=== PATIENT | female | born 1940 | race Caucasian/White ===

== ENCOUNTER 2020-09-14 11:43 | Observation (INO) ==
[2020-09-14] MEDS ORDERED: Gadolinium Contrast Agent (WT Based) IV PRN (12:58)
[2020-09-14] MEDS ORDERED: *HR* HYDROmorphone (PF) 1 MG/ML SYRINGE IVP STA (12:59)
[2020-09-14] MEDS ORDERED: *HR* HYDROmorphone 2 MG/ML SYRINGE IVP STA (12:59)
[2020-09-14] MEDS ORDERED: *HR* LORazepam 2 MG/ML VIAL IVP ONE (13:01)
[2020-09-14 13:26] LABS: Basophils % 0.4 %; Eosinophils # 0.1 K/mcL (0.0-0.6); Eosinophils % 1.5 %; Hematocrit 40.3 % (35.3-44.9); Immature Granulocytes % 0.2 % (0-4); Lymphocytes # 3.3 K/mcL (0.6-4.6); Lymphocytes % 34.6 %; Mean Corpuscular HGB Conc 31.3 g/dL (31.6-35.5); Mean Corpuscular Hemoglobin 31.4 pg (28.0-33.3); Mean Corpuscular Volume 100.5 fL (83.0-100.0); Mean Platelet Volume 10.7 fL (9.4-12.4); Monocytes # 0.9 K/mcL (0.0-1.3); Monocytes % 8.9 %; Neutrophils # 5.2 K/mcL (1.6-8.9); Platelet Count 177 K/mcL (140-400); Red Blood Count 4.01 M/mcL (3.82-4.97); Red Cell Distribution Width 13.2 % (11.5-14.5); Segmented Neutrophils % 54.4 %; White Blood Count 9.6 K/mcL (4.3-11.1)
[2020-09-14 13:28] LABS: Hemoglobin 12.6 g/dL (11.5-15.4)
[2020-09-14 13:48] LABS: Potassium 3.7 mEq/L (3.5-5.1)
[2020-09-14] MEDS ORDERED: Naloxone 0.4 MG/ML INJ IVP PRN (18:48)
[2020-09-14] MEDS ORDERED: Melatonin 3 MG TABLET PO PRN (18:48)
[2020-09-14] MEDS ORDERED: Acetaminophen 325 MG TABLET PO PRN (18:48)
[2020-09-14] MEDS ORDERED: Ondansetron 4 MG/2 ML VIAL IVP PRN (18:48)
[2020-09-14] MEDS ORDERED: Gabapentin 300 MG CAPSULE PO ONE (20:12)
[2020-09-14] MEDS ORDERED: Morphine Sulfate 2 MG/ML SYRINGE IVP PRN (20:15)
[2020-09-14] MEDS ORDERED: *HR* Labetalol 20 MG/4 ML SYRINGE IVP PRN (20:21)
[2020-09-14] MEDS: *HR* OxyCODONE Immed Rel 5 MG TABLET PO PRN (20:56)
[2020-09-15 07:07] LABS: Basophils # 0.1 K/mcL (0.0-0.2); Basophils % 0.6 %; Eosinophils # 0.3 K/mcL (0.0-0.6); Eosinophils % 3.5 %; Hematocrit 36.3 % (35.3-44.9); Hemoglobin 11.2 g/dL (11.5-15.4); Immature Granulocytes % 0.2 % (0-4); Lymphocytes # 3.3 K/mcL (0.6-4.6); Mean Corpuscular HGB Conc 30.9 g/dL (31.6-35.5); Mean Corpuscular Hemoglobin 31.2 pg (28.0-33.3); Mean Corpuscular Volume 101.1 fL (83.0-100.0); Mean Platelet Volume 10.6 fL (9.4-12.4); Monocytes # 0.7 K/mcL (0.0-1.3); Monocytes % 8.5 %; Neutrophils # 3.7 K/mcL (1.6-8.9); Platelet Count 160 K/mcL (140-400); Red Blood Count 3.59 M/mcL (3.82-4.97); Red Cell Distribution Width 13.4 % (11.5-14.5); Segmented Neutrophils % 46.2 %; White Blood Count 8.1 K/mcL (4.3-11.1)
[2020-09-15 07:51] LABS: Calcium 8.4 mg/dL (8.6-10.3); Potassium 4.3 mEq/L (3.5-5.1)
[2020-09-15] MEDS: *HR* HYDROcodone/Acet 5/325 mg TABLET PO PRN ×2 (09:01→18:59)
[2020-09-15] MEDS ORDERED: Gabapentin 300 MG CAPSULE PO SCH (09:30)
[2020-09-15] MEDS: Gabapentin 300 MG CAPSULE PO SCH ×3 (10:42→21:15)
[2020-09-15] MEDS: predniSONE 10 MG TABLET PO SCH (14:08)
[2020-09-15] MEDS: *HR* Heparin 5,000 UNIT/ML VIAL SQ SCH ×2 (14:08→21:15)
[2020-09-15] MEDS: *HR* OxyCODONE Immed Rel 5 MG TABLET PO PRN (14:08)
[2020-09-16] MEDS: *HR* Heparin 5,000 UNIT/ML VIAL SQ SCH ×3 (06:53→21:33)
[2020-09-16] MEDS: predniSONE 10 MG TABLET PO SCH (09:01)
[2020-09-16] MEDS: Gabapentin 300 MG CAPSULE PO SCH ×3 (09:01→21:33)
[2020-09-16] MEDS: *HR* OxyCODONE Immed Rel 5 MG TABLET PO PRN ×2 (09:10→23:05)
[2020-09-16] MEDS: *HR* HYDROcodone/Acet 5/325 mg TABLET PO PRN (14:15)
[2020-09-16] MEDS ORDERED: NON-FORMULARY MEDICATION 1 EACH EACH (Gabapentin [Neurontin] 600 MG Tablet) PO SCH (15:00)
[2020-09-16] MEDS: Celecoxib 200 MG CAPSULE PO SCH (16:09)
[2020-09-16] MEDS: lisinopriL 20 MG TABLET PO SCH (16:09)
[2020-09-17] MEDS: *HR* Heparin 5,000 UNIT/ML VIAL SQ SCH ×3 (06:29→19:43)
[2020-09-17] MEDS: predniSONE 10 MG TABLET PO SCH (08:31)
[2020-09-17] MEDS: lisinopriL 20 MG TABLET PO SCH (08:32)
[2020-09-17] MEDS: Gabapentin 300 MG CAPSULE PO SCH ×3 (08:32→19:43)
[2020-09-17] MEDS: Celecoxib 200 MG CAPSULE PO SCH (08:32)
[2020-09-17] MEDS: *HR* OxyCODONE Immed Rel 5 MG TABLET PO PRN ×2 (08:32→15:06)
[2020-09-18] MEDS: *HR* Heparin 5,000 UNIT/ML VIAL SQ SCH ×3 (05:59→21:07)
[2020-09-18] MEDS: Gabapentin 300 MG CAPSULE PO SCH ×3 (08:48→21:06)
[2020-09-18] MEDS: Celecoxib 200 MG CAPSULE PO SCH (08:48)
[2020-09-18] MEDS: predniSONE 10 MG TABLET PO SCH (08:49)
[2020-09-18] MEDS: *HR* OxyCODONE Immed Rel 5 MG TABLET PO PRN ×2 (08:49→14:49)
[2020-09-18] MEDS: lisinopriL 20 MG TABLET PO SCH (08:49)
[2020-09-19] MEDS: *HR* Heparin 5,000 UNIT/ML VIAL SQ SCH ×3 (05:07→21:22)
[2020-09-19] MEDS: Gabapentin 300 MG CAPSULE PO SCH ×3 (07:54→21:22)
[2020-09-19] MEDS: predniSONE 10 MG TABLET PO SCH (07:54)
[2020-09-19] MEDS: Celecoxib 200 MG CAPSULE PO SCH (07:55)
[2020-09-19] MEDS: lisinopriL 20 MG TABLET PO SCH (07:55)
[2020-09-19] MEDS: *HR* OxyCODONE Immed Rel 5 MG TABLET PO PRN ×2 (09:38→18:41)
[2020-09-19] MEDS: *HR* HYDROcodone/Acet 5/325 mg TABLET PO PRN (21:22)
[2020-09-20] MEDS: *HR* OxyCODONE Immed Rel 5 MG TABLET PO PRN ×2 (06:15→13:36)
[2020-09-20] MEDS: *HR* Heparin 5,000 UNIT/ML VIAL SQ SCH (06:17)
[2020-09-20] MEDS: Gabapentin 300 MG CAPSULE PO SCH (09:42)
[2020-09-20] MEDS: lisinopriL 20 MG TABLET PO SCH (09:42)
[2020-09-20] MEDS: predniSONE 10 MG TABLET PO SCH (09:42)
[2020-09-20] MEDS: Celecoxib 200 MG CAPSULE PO SCH (09:42)
[2020-09-20 11:18] VITALS: BP 126/73; PULSE 73; TEMP 97.8; O2SAT 95
== END 2020-09-20 14:22 ==
LOC: EMEROOARM 11:43 → 3NENU 11:43 → SUATTDRO 19:34 → 3NENU 20:20
PROVIDERS: ADMIT Pharmacist; ATTEND Internal Medicine